=== PATIENT | female | born 1985 | race Caucasian/White ===

== ENCOUNTER → 2019-05-10 16:59 | Outpatient (CLI) | payer OTHER, SELFPAY ==
[2019-05-10 13:50] VITALS: BMI 19.9
[2019-05-10 17:30] LABS: Amphetamine Urine VISTA NEGATIVE (<1000 ng/mL); Barbiturate Urine VISTA NEGATIVE (< 200 ng/mL); Benzodiazepine Urine VISTA NEGATIVE (< 200 ng/mL); Cocaine Urine VISTA NEGATIVE (< 300 ng/mL); Ecstacy Urine VISTA NEGATIVE (< 500 ng/mL); Methadone Urine VISTA NEGATIVE (< 300 ng/mL); PCP Urine VISTA NEGATIVE (< 25 ng/mL); THC Urine VISTA NEGATIVE (< 50 ng/mL); Vista UDS pH Range 6
[2019-05-10 21:10] LABS: Chlamydia Trachomatis by PCR Negative (Negative); Neisserai gonorrhoeae by PCR Negative (Negative); Probe Check PASS; Sample Adequacy Control PASS; Specimen Processing Control PASS
[2019-05-16 11:57] LABS: HPV APTIMA, High Risk Negative (Negative)
== END ==
PROVIDERS: Referring Provider Obstetrics & Gynecology; Visit Provider Obstetrics & Gynecology
DX: Z12.4 Encounter for screening for malignant neoplasm of cervix (principal); Z34.90 Encounter for supervision of normal pregnancy, unspecified, unspecified trimester
CPT/HCPCS: 80307; 87086; 87491; 87591; 87624; 88175; G0145

== ENCOUNTER → 2019-06-07 15:05 | Outpatient (CLI) | payer OTHER, SELFPAY ==
[2019-06-07 14:51] VITALS: BMI 19.9
[2019-06-07 15:35] LABS: Absolute Lymphocyte Count 1.67 X10^3/uL (0.83-4.51); Absolute Neutrophil Count 5.9 X10^3/uL (2.0-7.7); Basophil# 0.02 X10^3/uL; Basophil% 0.2 % (0-1); Eosinophil# 0.06 X10^3/uL; Eosinophils% 0.7 % (0-5); Hematocrit 32.4 % (37-47); Lymphocyte # 1.67 X10^3/ul (4.0); Lymphocyte % 20.7 % (19-41); Mean Corpuscular Hgb 29.2 pg (27.0-32.0); Mean Corpuscular Volume 85.9 fL (81-99); Mean Platelet Vol. 10.6 fl (6.2-12.0); Monocyte# 0.42 X10^3/uL; Monocyte% 5.2 % (0-10); NRBC Flagged by Analyzer 0 % (0-5); Neutrophil # 5.85 X10^3/uL (2.7-7.7); Neutrophil % 72.8 % (47-70); Platelet Count 254 K/mm3 (150-450); RBC Distribution Width CV 13.4 % (11.6-14.6); RBC Distribution Width SD 41.7 fl (35.1-43.9); Red Blood Count 3.77 M/mm3 (4.2-5.4); White Blood Count 8.1 K/mm3 (4.4-11.0)
[2019-06-07 16:14] LABS: NATERA MAILED SPECIMEN
[2019-06-08 10:55] LABS: HIV - WCH Non-Reactive (Nonreactive); Hepatitis B Surface Antigen Non-Reactive (Nonreactive); Hepatitis C Antibody Non-Reactive (Nonreactive); Rubella IgG 10.4 IU/mL
[2019-06-14 01:04] LABS: Rapid Plasmin Reagin (RPR) NONREACTIVE (NONREACTIVE)
== END ==
PROVIDERS: Referring Provider Obstetrics & Gynecology; Visit Provider Obstetrics & Gynecology
DX: Z34.81 Encounter for supervision of other normal pregnancy, first trimester (principal); Z31.430 Encounter of female for testing for genetic disease carrier status for procreative management
CPT/HCPCS: 36415; 85025; 86592; 86703; 86762; 86803; 86850; 86900; 86901; 87340

== ENCOUNTER → 2019-09-18 09:51 | Outpatient (CLI) | payer OTHER, SELFPAY ==
[2019-09-18 09:38] VITALS: BMI 21.9
[2019-09-18 10:56] LABS: Absolute Lymphocyte Count 1.14 X10^3/uL (0.83-4.51); Absolute Neutrophil Count 7.9 X10^3/uL (2.0-7.7); Basophil# 0.03 X10^3/uL; Basophil% 0.3 % (0-1); Eosinophil# 0.06 X10^3/uL; Eosinophils% 0.6 % (0-5); Hematocrit 33.2 % (37-47); Hemoglobin 10.7 g/dL (12.0-15.0); Lymphocyte # 1.14 X10^3/ul (4.0); Lymphocyte % 11.7 % (19-41); Mean Corp Hgb Conc 32.2 g/dL (32-36); Mean Corpuscular Hgb 29.4 pg (27.0-32.0); Mean Corpuscular Volume 91.2 fL (81-99); Mean Platelet Vol. 10.2 fl (6.2-12.0); Monocyte% 5.1 % (0-10); NRBC Flagged by Analyzer 0 % (0-5); Neutrophil % 81.5 % (47-70); Platelet Count 277 K/mm3 (150-450); RBC Distribution Width CV 13.3 % (11.6-14.6); RBC Distribution Width SD 44.2 fl (35.1-43.9); Red Blood Count 3.64 M/mm3 (4.2-5.4); White Blood Count 9.7 K/mm3 (4.4-11.0)
[2019-09-18 11:09] LABS: Glucose Challenge Gest 1H 50g 94 mg/dL (70-140)
== END ==
PROVIDERS: Obstetrics & Gynecology; Referring Provider Nurse Practitioner Women's Health; Visit Provider Nurse Practitioner Women's Health
DX: Z34.80 Encounter for supervision of other normal pregnancy, unspecified trimester (principal)
CPT/HCPCS: 36415; 82950; 85025

== ENCOUNTER → 2019-11-01 09:25 | Outpatient (CLI) | payer OTHER, SELFPAY ==
[2019-11-01 09:06] VITALS: BMI 25.1
[2019-11-01 09:39] LABS: Absolute Lymphocyte Count 1.17 X10^3/uL (0.83-4.51); Absolute Neutrophil Count 7.8 X10^3/uL (2.0-7.7); Basophil# 0.02 X10^3/uL; Basophil% 0.2 % (0-1); Eosinophil# 0.05 X10^3/uL; Eosinophils% 0.5 % (0-5); Hemoglobin 11.1 g/dL (12.0-15.0); Lymphocyte # 1.17 X10^3/ul (4.0); Lymphocyte % 12.2 % (19-41); Mean Corp Hgb Conc 32.6 g/dL (32-36); Mean Corpuscular Hgb 29.5 pg (27.0-32.0); Mean Corpuscular Volume 90.4 fL (81-99); Mean Platelet Vol. 10.8 fl (6.2-12.0); Monocyte# 0.49 X10^3/uL; Monocyte% 5.1 % (0-10); NRBC Flagged by Analyzer 0 % (0-5); Neutrophil # 7.79 X10^3/uL (2.7-7.7); Platelet Count 244 K/mm3 (150-450); RBC Distribution Width CV 14.2 % (11.6-14.6); RBC Distribution Width SD 46.7 fl (35.1-43.9); Red Blood Count 3.76 M/mm3 (4.2-5.4); White Blood Count 9.6 K/mm3 (4.4-11.0)
== END ==
PROVIDERS: Referring Provider Obstetrics & Gynecology; Visit Provider Obstetrics & Gynecology
DX: O99.019 Anemia complicating pregnancy, unspecified trimester (principal); Z3A.00 Weeks of gestation of pregnancy not specified
CPT/HCPCS: 36415; 85025

== ENCOUNTER → 2019-11-15 | Outpatient (CLI) | payer OTHER, SELFPAY ==
[2019-11-15 08:55] VITALS: BMI 25.1
== END | disposition home or self-care (01) ==
LOC: LABSPEC 10:59
PROVIDERS: Referring Provider Obstetrics & Gynecology; Visit Provider Obstetrics & Gynecology
DX: Z34.90 Encounter for supervision of normal pregnancy, unspecified, unspecified trimester (principal)
CPT/HCPCS: 87081

== ENCOUNTER 2019-11-17 00:38 | Inpatient (IN) | payer OTHER, SELFPAY ==
[2019-11-15 08:55] VITALS: BMI 25.1
[2019-11-17] VITALS (18 sets, daily range): BP systolic 102–154; BP diastolic 53–82; PULSE 76–96; RESP 16–18; TEMP 36.1–36.9; O2SAT 100; BMI 26.2
[2019-11-17] MEDS: Lactated Ringers 1,000 ML 200 ML IV (01:25)
[2019-11-17 01:38] LABS: Absolute Lymphocyte Count 1.49 X10^3/uL (0.83-4.51); Absolute Neutrophil Count 13.7 X10^3/uL (2.0-7.7); Basophil# 0.03 X10^3/uL; Basophil% 0.2 % (0-1); Eosinophil# 0.02 X10^3/uL; Eosinophils% 0.1 % (0-5); Hematocrit 34.3 % (37-47); Hemoglobin 11.8 g/dL (12.0-15.0); Lymphocyte # 1.49 X10^3/ul (4.0); Lymphocyte % 9.2 % (19-41); Mean Corp Hgb Conc 34.4 g/dL (32-36); Mean Corpuscular Hgb 29.6 pg (27.0-32.0); Mean Corpuscular Volume 86.2 fL (81-99); Mean Platelet Vol. 11.5 fl (6.2-12.0); Monocyte# 0.93 X10^3/uL; Monocyte% 5.7 % (0-10); NRBC Flagged by Analyzer 0 % (0-5); Neutrophil # 13.68 X10^3/uL (2.7-7.7); Neutrophil % 84.3 % (47-70); Platelet Count 234 K/mm3 (150-450); RBC Distribution Width CV 13.8 % (11.6-14.6); RBC Distribution Width SD 42.2 fl (35.1-43.9); Red Blood Count 3.98 M/mm3 (4.2-5.4); White Blood Count 16.2 K/mm3 (4.4-11.0)
[2019-11-17] MEDS: Oxytocin 30 units/NS 500 ml 30 UNITS/500 ML IV.SOLN 334 UNITS IV (02:10)
[2019-11-17 02:11] LABS: Group B Strep DNA By PCR Negative (Negative); Internal Control PASS; Probe Check PASS; Specimen Processing Control PASS
[2019-11-17 02:50] LABS: Probe Check PASS; Specimen Processing Control PASS
[2019-11-17] MEDS: Naproxen 250 MG Tablet 500 MG PO ×3 (04:03→23:46)
[2019-11-17] MEDS: Acetaminophen 500 MG Tablet 1000 MG PO ×2 (09:01→21:01)
--- NOTE | 2019-11-18 04:31 | HP.PCM_ITS ---
- Problem List (1) Active labor at term Status: Acute (2) Supervision of high-risk Status: Acute Comment: PRR HAYLEY 12/12/2019 Boy PC Cindy Moise Spouse: Shayan (3) Anemia affecting Status: Acute Comment: iron added- resolved (4) Abnormal ultrasound Status: Acute Comment: Previous anechoic cysts have resolved or collapsed when last check with MFM. Recommend growth US every 4 weeks. Growth US normal on 11/12/19 (5) Status: Acute Qualifiers: Comment: low risk and carrier screening negative. declined afp screening. anatomy US reviewed. (6) Hyperemesis Status: Acute Comment: increased heartburn symptoms and side effects of other meds, switched to meclizine and added pepcid. also has ordered PRN zofran phenergan. History Date of Admission: 11/17/19 Final HAYLEY: 12/12/19 Gestational age: 36 Weeks and 4 Days History of this : This is a 34 year-old, , at 36 weeks gestational age presents in active labor completely dilated with intact membranes. Patient has had an uncomplicated . Surgical History: Surgical History (Last Reviewed 11/15/19 @ 08:55 by Elisabeth Valadez) History of tonsillectomy Z90.89 Allergies No Known Allergies Allergy (Verified 11/15/19 08:54) Home Medications: Home Medications multivitamin no.47-iron fum 27 mg-folate no.1 1 mg-dha 300 mg capsule cap PO 05/10/19 doxylamine 10 mg-pyridoxine (vit B6) 10 mg tablet,delayed release 1 tab PO BID #60 tab 05/11/19 ondansetron 4 mg disintegrating tablet 4 mg PO Q4H PRN #60 tab 08/30/19 meclizine 25 mg tablet 25 mg PO TID PRN #60 tab 10/04/19 famotidine 20 mg tablet 20 mg PO DAILY #30 tab 10/15/19 promethazine 12.5 mg tablet 12.5 mg PO Q6H PRN #120 tab 10/15/19 Smoking Status: Never smoker Alcohol: None Number of Fetus(es): 1 NST - FHR Rate Baby A Baseline: 130 Variability:: Moderate Accelerations:: 15 x 15 Decelerations:: None NST Reactive:: Yes FHR Category:: Category I Uterine Activity:: q2 History Past Pregnancies: Past Pregnancies regancy History 3 Elective abortions Hx Para 2 Spontaneous abortions Hx # Term Pregnancies 2 Ectopic pregnancies Hx # Pregnancies Multiple births # of living children 2 Past Pregnancies Del. Date Name GA/Weeks Outcome Route Bth Weight Infant Gen Labor Lgth Anesthesia Del Locatn Provider FOB Unknown 12/29/14- GENEVA CINDA 39 live - full term 6BS 5OZ Fem sloane 2 HOURS none GILL MORTON Unknown 01/09/17- CINDY 38 live - full term 7LBS Female 30HOURS none JOSE MEAD Delivery Date: On 05/10/19 @ 13:58 Camila Lainez HYPEREMESIS Delivery Date: On 05/10/19 @ 13:59 Camila Lainez HYPEREMESIS Labs: Mom's Microbiology 11/17/19 Unknown Genital vaginal Group B Streptococcus Culture - Pending Mom's Problem List Problem Status Onset Code Active labor at term Acute Mom's Labs & Results 11/17/19 11/17/19 11/17/19 01:00 01:22 01:25 WBC 16.2 H RBC 3.98 L Hgb 11.8 L Hct 34.3 L MCV 86.2 MCH 29.6 MCHC 34.4 RDW Std Deviation 42.2 RDW Coeff of Elio 13.8 Plt Count 234 MPV 11.5 Immature Gran % (Auto) 0.500 Neut % (Auto) 84.3 H Lymph % (Auto) 9.2 L [place] % (Auto) 5.7 Eos % (Auto) 0.1 Baso % (Auto) 0.2 Absolute Neuts (auto) 13.7 H Absolute Lymphs (auto) 1.49 Nucleated RBC % 0 COVID-19 (HAZEL) Not Detected Group B Strep DNA Negative Specimen Comment Not Reportable Blood Type Antibody Screen 11/17/19 01:25 WBC RBC Hgb Hct MCV MCH MCHC RDW Std Deviation RDW Coeff of Elio Plt Count MPV Immature Gran % (Auto) Neut % (Auto) Lymph % (Auto) [place] % (Auto) Eos % (Auto) Baso % (Auto) Absolute Neuts (auto) Absolute Lymphs (auto) Nucleated RBC % COVID-19 (HAZEL) Group B Strep DNA Specimen Comment Blood Type A POSITIVE Antibody Screen NEGATIVE Course Did the patient receive Yes care? Labs Blood Type: A RH: POSITIVE RPR/VDRL/Syphilis Nonreactive Rubella status Immune HbSAg Negative Date Done: 06/07/19 HIV/AIDS Non-Reactive Group B Strep: Collected on Admission Current Obstetrical History Gestational Diabetes No Incompetent Cervix No Infertility No IUGR No Macrosomia No Hypertension/Pre-eclampsia No Placenta Previa/Abruption No PTL/PROM Yes Uterine anomaly No Oligohydramnios No Polyhydramnios No Multiple gestation No Past Medical History Asthma No Diabetes No Hypertension No Heart disease No Mitral valve prolapse No Neurologic/Seizure disorder/ No Migraines Kidney disease No Liver disease No Varicosities No Clotting disorders/Hx of DVT No Thyroid Dysfunction No Other medical diseases No Psychiatric disorders No Major trauma No Abnormal PAP smear No Sleep apnea No Mammogram in the last 2 years No Social History Marital Status: Alleged father Shayan Ruvalcaba Hx Smoking No Smoking Status Never smoker Expected Infant Delivery Method: Spontaneous Vaginal Review of Systems Constitutional: Denies: Fever, Malaise Eyes: Denies: Blurred vision, Vision Change HEENT: Denies: Head Aches, Visual Changes Cardiovascular: Denies: Chest Pain, Palpitations Respiratory: Denies: Cough, Shortness of Breath, Wheezing Gastrointestinal: Denies: Abdominal Pain, Diarrhea, Nausea, Vomiting Genitourinary: Denies: Dysuria, Hematuria Musculoskeletal: Denies: Joint Pain, Muscle pain Skin: Denies: Lesions, Rash Neurological: Denies: Blurred vision, Focal weakness, Headaches Psychiatric: Denies: Anxiety, Depression Endocrine: Denies: Heat/ Cold Intolerance Hematologic/ Lymphatic: Denies: Easy Bruising, Easy Bleeding Physical Exam Vitals: Vital Signs Temp Pulse Resp BP Pulse Ox 97.1 F L 81 16 119/63 100 11/17/19 23:38 11/17/19 23:38 11/17/19 23:38 11/17/19 23:38 11/17/19 00:24 General: Alert, Cooperative, No apparent distress HEENT: Atraumatic, Normocephalic. Negative for: Thyromegaly, Lymphadenopathy Cardiovascular: Regular rate Lungs: Normal air movement Abdomen: Soft, Non Tender, Gravid Neurological: Deep Tendon Reflexes 2+/4 and Symmetrical, Neuro grossly intact. Negative for: Clonus SOUND EFFECTS PERSON: Normal external genitalia. Negative for: Vulvar lesions Estimated gestational size: Appropriate for gestational size Presentation: Cephalic Assessment/Plan All Active Problems (Last Reviewed 11/15/19 @ 08:55 by Elisabeth Valadez) Active labor at term (Acute) Supervision of high-risk (Acute) Anemia affecting (Acute) Abnormal ultrasound (Acute) (Acute) Hyperemesis (Acute) This is a 34 year-old at 36 weeks gestational age presents in active labor Patient presents IAL, plan expectant management for , AROM clear fluid. Pain management: Plans epidural. GBS positive unable to get penicillin prior to delivery, elevated white count and borderline temp after delivery 1 dose of Ancef given.. Management of any complications: I have reviewed the [facility] and made any clinically relevant updates. *
[2019-11-18 04:43] VITALS: BP 103/57; PULSE 78; RESP 14; TEMP 36.4
--- NOTE | 2019-11-18 04:49 | PCM.OPRPT ---
Problem List (1) Active labor at term Status: Acute (2) Supervision of high-risk Status: Acute Comment: PRR HAYLEY 12/12/2019 Boy PC Lizzeth Moise Spouse: Shayan (3) Anemia affecting Status: Acute Comment: iron added- resolved (4) Abnormal ultrasound Status: Acute Comment: Previous anechoic cysts have resolved or collapsed when last check with MFM. Recommend growth US every 4 weeks. Growth US normal on 11/12/19 (5) Status: Acute Qualifiers: Comment: low risk and carrier screening negative. declined afp screening. anatomy US reviewed. (6) Hyperemesis Status: Acute Comment: increased heartburn symptoms and side effects of other meds, switched to meclizine and added pepcid. also has ordered PRN zofran phenergan. Vaginal Delivery Maternal Presentation: Active Labor 34-year-old presents at 36 weeks 4 days in active labor, previous uncomplicated Amniotic Membrane Rupture Type: Spontaneous Amniotic Fluid Description: Clear Final HAYLEY: 12/12/19 Gestational age: 36 Weeks and 4 Days Date of Procedure: 11/18/19 Pre-Operative Diagnosis: In active labor Post-Operative Diagnosis: Same Surgery/ Procedure Performed: Spontaneous Vaginal Delivery Type of Anesthesia: None Description of Procedure: Patient began pushing and delivered the head in the HARRY presentation. The head was delivered atraumatically. The anterior and posterior shoulders delivered without complication followed by the rest of the and the infant was placed on the maternal abdomen. Delayed cord clamping was employed for approximately 60 seconds. Cord was clamped and cut and gentle traction was applied to the cord and the placenta delivered spontaneously immediately following it was noted to be intact with three-vessel cord. The perineum and vagina were inspected and noted to have no laceration. EBL was 100 cc. Patient and infant tolerated delivery well. Presentation: HARRY Placental Delivery Description: Spontaneous Placenta Disposition: [facility] Cord Entanglement: None Estimated Blood Loss: 100 Infant A gender: Male Episiotomy Description: None Laceration: None Medications given after delivery: - - IM Pitocin Complications: None Multi Select Codes - Urinary/Genital Urinary/Genital CPT Codes: 37592 Vaginal Delivery [facility]
[2019-11-18] MEDS: Acetaminophen 500 MG Tablet 1000 MG PO ×2 (05:09→13:09)
--- NOTE | 2019-11-18 07:21 | PCM.PN.OB ---
Patient Problems: Active and Suspected Problems (Last Reviewed 11/15/19 @ 08:55 by Elisabeth Valadez) Active labor at term (Acute) Subjective: doing well no complaints pain controlled no CP SOB N V ambulating well tolerating po lochia moderate, going well - Physical Exam Vitals/I&O's: Vital Signs Temp Pulse Resp BP Pulse Ox 97.6 F L 78 14 103/57 L 100 11/18/19 04:43 11/18/19 04:43 11/18/19 04:43 11/18/19 04:43 11/17/19 00:24 Oxygen Delivery Method Room Air Weight: 148 lb Body Mass Index (BMI) 26.2 Intake and Output for Last 24 Hours 11/16/19 11/17/19 11/18/19 23:59 23:59 23:59 Intake Total 550 / 550 Balance 550 / 550 Current Medications Acetaminophen (Tylenol) 1,000 mg PO Q8H PRN PRN PRN Reason: Pain Score 1-3/10 Last Admin: 11/18/19 05:09 Dose: 1,000 mg Documented by: Bisacodyl (Dulcolax) 10 mg RECTAL UD PRN PRN Reason: If no BM Dibucaine (Dibucaine) 1 applic TOPICAL TID PRN PRN; Protocol PRN Reason: Discomfort Hydrocortisone (Hytone) 1 applic TOPICAL TID PRN PRN; Protocol PRN Reason: Discomfort Methylergonovine Maleate (Methergine) 0.2 mg IM X1 PRN PRN Reason: Excess bleeding/uterine atony Naproxen (Naprosyn) 500 mg PO Q8H PRN PRN PRN Reason: Pain Score 1-3/10 Last Admin: 11/17/19 23:46 Dose: 500 mg Documented by: Ondansetron HCl (Zofran) 4 mg IV Q4H PRN PRN PRN Reason: Nausea Oxycodone HCl (Oxyir) 5 - 10 mg PO Q4H PRN PRN PRN Reason: Pain Score 4-10/10 Senna/Docusate Sodium (Senokot-S, Candi-Colace) 1 - 2 tablet PO DAILY PRN PRN PRN Reason: Constipation Simethicone (Mylicon) 80 mg PO PCHS PRN PRN Reason: Indigestion/Stomach pain Sodium Chloride () 5 - 15 ml IV UD PRN PRN Reason: SALINE FLUSH Medical Necessity - Tobacco Use Smoking Status: Never smoker Assessment/Plan All Active Problems (Last Reviewed 11/15/19 @ 08:55 by Elisabeth Valadez) Active labor at term (Acute) Supervision of high-risk (Acute) Anemia affecting (Acute) Abnormal ultrasound (Acute) (Acute) Hyperemesis (Acute) s/p PPD # 1 1. routine post delivery care 2. breast feeding- support given 3. rh positive 4. rubella immune
--- NOTE | 2019-11-18 07:24 | DCINST_ITS ---
Discharge Diet: No Restrictions Discharge Activity: Return to Normal Activity, May not drive while taking narcotic pain medications., May Shower May resume sexual activity in: 4-6 weeks Call your doctor if your incision/area has: Continuous Slow Oozing, Sudden Increased Bleeding, Increased Pain/ Swelling, Increased Redness, Foul Smelling Discharge Additional Instructions: If you experience any of the following, contact your healthcare provider. * Bleeding that soaks a pad every hour for 2 hours * Fever 100.4 or higher * Unrelieved incision or abdominal pain * Swelling, redness, discharge or bleeding from your incision or episiotomy site * Your incision begins to separate * Problems urinating (including inability to urinate or burning while urinating). * Visual changes * Severe headache * Flu-like symptoms * Pain or redness in one of both of your breasts * Pain, warmth, tenderness or swelling in your legs, especially the calf area * Frequent nausea and vomiting * Symptoms of depression or anxiety If you experience any of the following, call 911 or go to the nearest Emergency Room. * Chest pain * Problems breathing * Seizure activity * Partial or complete paralysis of a body part, slurred speech, weakness or drooping of the face, or a sudden inability to walk or hold your balance Allergies/Adverse Reactions: Allergies No Known Allergies Allergy (Verified 11/15/19 08:54) Medications to take at Discharge multivitamin no.47-iron fum 27 mg-folate no.1 1 mg-dha 300 mg capsule cap PO 05/10/19 doxylamine 10 mg-pyridoxine (vit B6) 10 mg tablet,delayed release 1 tab PO BID #60 tab 05/11/19 ondansetron 4 mg disintegrating tablet 4 mg PO Q4H PRN #60 tab 08/30/19 meclizine 25 mg tablet 25 mg PO TID PRN #60 tab 10/04/19 famotidine 20 mg tablet 20 mg PO DAILY #30 tab 10/15/19 promethazine 12.5 mg tablet 12.5 mg PO Q6H PRN #120 tab 10/15/19 Please Follow Up With: Leslie Casas MD - [phone] When: Call to make an appointment with your doctor in 6 weeks. If you had elevated Blood pressure or 4th degree laceration you will need to be seen in 2 weeks. Primary Care Physician: Care Physician,No Primary [Primary Care Provider] - Test Results: Test results from this visit will be discussed in further detail at your follow- up appointment, if applicable.
[2019-11-18] MEDS: Naproxen 250 MG Tablet 500 MG PO (07:48)
[2019-11-18 07:49] VITALS: BP 113/73; PULSE 81; RESP 16; TEMP 36.2
[2019-11-18 13:00] VITALS: BP 128/77; PULSE 88; RESP 16; TEMP 36.7
== END 2019-11-18 13:10 | disposition home or self-care (01) | DRG 807 ==
LOC: WPOUT 00:40 → WP 00:40
PROVIDERS: Admitting Provider Obstetrics & Gynecology; Visit Provider Obstetrics & Gynecology
DX: O60.14X0 Preterm labor third trimester with preterm delivery third trimester, not applicable or unspecified (principal); Z37.0 Single live birth; O42.913 Preterm premature rupture of membranes, unspecified as to length of time between rupture and onset of labor, third trimester; O99.02 Anemia complicating childbirth; D64.9 Anemia, unspecified; O26.893 Other specified pregnancy related conditions, third trimester; R12 Heartburn; O21.2 Late vomiting of pregnancy; Z3A.36 36 weeks gestation of pregnancy
CPT/HCPCS: 59025; 59050; 85025; 86850; 86900; 86901; 87081; 87635; 87653; 94799; 99218; J7120; G0378; U0003

== ENCOUNTER → 2022-11-09 | Outpatient (CLI) | payer BC, SELFPAY | END | disposition home or self-care (01) | PROVIDERS: Visit Provider Advanced Practice Midwife | DX: N89.8 Other specified noninflammatory disorders of vagina (principal) | CPT/HCPCS: 87070; 87077; 87205 ==

== ENCOUNTER → 2023-03-24 | Outpatient (CLI) | payer BC, SELFPAY ==
--- NOTE | 2023-03-24 09:29 | US_ITS ---
STUDY: ULTRASOUND BREAST - LEFT REASON FOR EXAM: Female, 37 years old. Palpable lump left breast. TECHNIQUE: Axial and longitudinal images of the LEFT breast were performed with a high resolution ultrasound transducer. # OF IMAGES: 14 COMPARISON: Comparison is made with prior mammogram done earlier in the day. FINDINGS: LEFT Breast: The retroareolar region of the breast was examined with ultrasound. There is dense fibroglandular tissue. No sonographic abnormalities. US/Breast Limited Unilateral IMPRESSION: No sonographic abnormality is seen. ASSESSMENT CATEGORY: BIRADS Category 1: Negative. A letter regarding these results will be sent to the patient by the facility within 30 days. Electronically Signed: Costa Chavez MD at 10:41 EST ,
--- NOTE | 2023-03-24 09:29 | BI_ITS ---
MAMMOGRAPHY - BILATERAL DIAGNOSTIC REASON FOR EXAM: Female, 37 years old. Palpable lump in the anterior upper lateral aspect of the left breast. PERTINENT HISTORY: Non-contributory. TECHNIQUE: Digital bilateral breast sophia (3D mammographic acquisition) in the CC and MLO projections. 2-D mediolateral oblique (MLO) and craniocaudad (CC) views of both breasts were obtained. CAD: Full Field Digital Mammography with Computer Added Detection was performed. COMPARISON: None. Baseline examination. FINDINGS: Breast Composition: The breasts are extremely dense, which lowers the sensitivity of mammography. There are no dominant masses or suspicious calcifications. No other significant abnormalities are identified. BI/DIAG MAMM W/CAD, BILAT IMPRESSION: Negative diagnostic mammogram. With the patient''s history of a palpable lump in the right breast, targeted correlation with ultrasound recommended. ASSESSMENT CATEGORY: BIRADS Category 0: Incomplete. Need additional imaging evaluation. A letter regarding these results will be sent to the patient by the facility within 30 days. Approximately 10% of breast cancers are not detected by mammography. A normal mammogram should not delay biopsy of a clinically suspicious abnormality. Electronically Signed: Costa Chavez MD at 10:34 EST ,
== END | disposition home or self-care (01) ==
PROVIDERS: Referring Provider Registered Nurse; Visit Provider Registered Nurse
DX: N63.21 Unspecified lump in the left breast, upper outer quadrant (principal)
CPT/HCPCS: 76642; 77062; 77066; G0279